=== PATIENT | male | born 1950 | race Caucasian/White ===

== ENCOUNTER 2024-04-14 01:11 | Inpatient (IN) | payer MEDICARE, OTHER ==
[~2024-04-14] VITALS: Ht 182.9 cm; Wt 72.6 kg
[2024-04-14] MEDS ORDERED: FAMO20TA80 PO (01:25)
[2024-04-14] MEDS ORDERED: ARIP20TA4 PO (01:25)
[2024-04-14] MEDS ORDERED: PANT40TA2 PO (01:25)
[2024-04-14] MEDS ORDERED: FLUT9.9S16 NS (01:25)
[2024-04-14] MEDS ORDERED: IPRA4AER PO (01:25)
[2024-04-14 01:55] LABS: BASOPHILS % (AUTO) 0.3 % (0.0-2.0); EOSINOPHILS % (AUTO) 0.4 % (0.0-6.0); HEMATOCRIT 43 % (39-51); HEMOGLOBIN 14.7 g/dL (13.5-17.5); LYMPHOCYTES # (AUTO) 1.4 K/uL (0.8-4.8); LYMPHOCYTES % (AUTO) 13.3 % (20.0-44.0); MEAN CORPUSCULAR HEMOGLOBIN 31 PG (26.0-33.0); MEAN CORPUSCULAR HGB CONC 34 g/dl (31.0-36.0); MEAN CORPUSCULAR VOLUME 91 fL (80-96); MONOCYTES % (AUTO) 9.3 % (2.0-12.0); NEUTROPHILS # (AUTO) 8.2 K/uL (1.8-8.9); NEUTROPHILS % (AUTO) 76.7 % (43.0-81.0); PLATELET COUNT (AUTO) 225 K/uL (150-450); RED BLOOD CELL COUNT(AUTO) 4.76 MIL/uL (4.5-6.0); RED CELL DISTRIBUTION WIDTH 14.3 % (11.5-15.0); WHITE BLOOD COUNT (AUTO) 10.7 K/uL (4.3-11.0)
[2024-04-14 01:59] LABS: APPEARANCE,URINE CLEAR (CLEAR); BILIRUBIN,URINE NEGATIVE (NEGATIVE); BLOOD, URINE NEGATIVE Ery/uL (NEGATIVE); COLOR,URINE YELLOW (YELLOW); KETONES,URINE TRACE mg/dL (NEGATIVE); LEUKOCYTE ESTERASE ,URINE NEGATIVE (NEGATIVE); NITRITE, URINE NEGATIVE (NEGATIVE); PROTEIN,URINE NEGATIVE (NEGATIVE); UGLUCOSE NEGATIVE (NEGATIVE); UROBILINOGEN,URINE 0.2 EU/dL (0.2)
[2024-04-14 02:07] LABS: ALANINE AMINOTRANSFERASE 54 U/L (12-78); ALBUMIN 4.1 g/dL (3.4-5.0); ALKALINE PHOSPHATASE 107 U/L (46-116); ASPARTATE AMINOTRANSFERASE 30 U/L (15-37); BILIRUBIN,DIRECT 0.1 mg/dL (0.0-0.2); BILIRUBIN,TOTAL 0.6 mg/dL (0.2-1.0); CALCIUM, SERUM 9.2 mg/dL (8.5-10.1); CARBON DIOXIDE 26 mmol/L (21-32); CHLORIDE 110 mmol/L (98-107); CREATININE 0.7 mg/dL (0.6-1.3); GLUCOSE 110 mg/dL (74-106); SODIUM SERUM 146 mmol/L (136-145); TOTAL PROTEIN, SERUM 7.8 g/dL (6.4-8.2); UREA NITROGEN, BLOOD 21 mg/dL (7-18)
[2024-04-14 02:08] LABS: SALICYLATE 2.7 mg/dL (2.8-20.0)
[2024-04-14 02:09] LABS: ACETAMINOPHEN <10 ug/ml (10-30); ALCOHOL, BLOOD < 3 mg/dL (0-10)
[2024-04-14 02:18] LABS: ADD URINE CULTURE NO; BACTERIA,URINE Rare /HPF (None Seen); WBC,URINE NONE SEEN /HPF (0-3)
[2024-04-14 02:19] LABS: MUCUS,URINE Few /LPF (None Seen); SQUAMOUS EPITHELIAL CELL,UR None Seen /HPF (None Seen)
[2024-04-14 02:22] LABS: AMPHETAMINE, URINE NEGATIVE (NEGATIVE); BARBITURATE, URINE NEGATIVE (NEGATIVE); BENZODIAZEPINE, URINE NEGATIVE (NEGATIVE); CANNABINOID, URINE NEGATIVE (NEGATIVE); COCCAINE, URINE NEGATIVE (NEGATIVE); OPIATE, URINE NEGATIVE (NEGATIVE); PHENCYCLIDINE SCREEN,URINE NEGATIVE (NEGATIVE)
[2024-04-14] MEDS ORDERED: clonazePAM 0.5 MG TABLET PO PRN ×2 (03:30)
[2024-04-14] MEDS ORDERED: MAGNESIUM HYDROXIDE 30 ML UDC PO PRN (03:30)
[2024-04-14] MEDS ORDERED: TEMAZEPAM 7.5 MG CAPSULE PO PRN ×3 (03:30→09:00)
[2024-04-14 04:16] VITALS: BP 146/88; TEMP 98; O2SAT 95
[2024-04-14] MEDS: BLOOD SUGAR DIAGNOSTIC 1 EACH STRIP IN ONE (04:23)
[2024-04-14] MEDS: FAMOTIDINE (20 MG) 20 MG TABLET PO SCH (07:57)
[2024-04-14] MEDS: PANTOPRAZOLE 40 MG TABLET.DR PO SCH (07:58)
[2024-04-14 08:00] VITALS: BP 144/90; TEMP 98; O2SAT 95
[2024-04-14] MEDS ORDERED: MAG-5 PO (08:28)
[2024-04-14] MEDS ORDERED: ACET-868 PO (08:28)
[2024-04-14] MEDS ORDERED: Medication Not On Formulary EA (Ipratropium/Albuterol Sulfate (Combivent Respimat 20-100 PO SCH (09:00)
[2024-04-14] MEDS: FLUTICASONE PROPIONATE 16 GM BOTTLE NS SCH (09:52)
[2024-04-14] MEDS: ALBUTEROL FS 2.5 MG/3 ML VIAL.NEB NEB SCH (11:54)
[2024-04-14] MEDS: IPRATROPIUM NEB FS 0.5 MG/2.5 ML AMPUL.NEB NEB SCH (11:54)
[2024-04-14 16:00] VITALS: BP 146/86; TEMP 98.9; O2SAT 95
[2024-04-14 20:00] VITALS: BP 150/86; TEMP 98.5; O2SAT 97
[2024-04-14] MEDS: ARIPIPRAZOLE 5 MG TABLET PO SCH (22:00)
[2024-04-15] MEDS: MAG HYDROX/AL HYDROX/SIMETH 30 ML UDC PO PRN (00:45)
[2024-04-15 08:00] VITALS: BP 139/80; TEMP 97.6; O2SAT 96
[2024-04-15] MEDS: ACETAMINOPHEN 325 MG TABLET PO PRN (13:11)
[2024-04-15 16:00] VITALS: BP 128/84; TEMP 97.9; O2SAT 98
[2024-04-15 20:00] VITALS: BP 111/60; TEMP 98; O2SAT 98
[2024-04-15] MEDS: HALOPERIDOL LACTATE INJ 5 MG/ML VIAL IM PRN (22:46)
[2024-04-15] MEDS: diphenhydrAMINE HCL 50 MG/ML VIAL IM PRN (22:46)
[2024-04-16 08:00] VITALS: BP 133/82; TEMP 98.1; O2SAT 98
[2024-04-16 16:00] VITALS: BP 105/41; TEMP 98.1; O2SAT 96
[2024-04-16 20:27] VITALS: BP 106/80; TEMP 98.1; O2SAT 97
[2024-04-17 21:13] VITALS: BP 105/70; TEMP 98.6; O2SAT 99
[2024-04-18 08:00] VITALS: BP 137/80; TEMP 98.7; O2SAT 98
[2024-04-18 16:00] VITALS: BP 108/78; TEMP 97.8; O2SAT 99
[2024-04-18 20:00] VITALS: BP 122/67; TEMP 98.7; O2SAT 98
[2024-04-19 08:00] VITALS: BP 125/64; TEMP 98.1; O2SAT 96
[2024-04-19] MEDS: clonazePAM 0.5 MG TABLET PO PRN (15:56)
[2024-04-19 16:00] VITALS: BP 130/87; TEMP 98.1; O2SAT 98
[2024-04-19 20:00] VITALS: BP 139/76; TEMP 98.7; O2SAT 97
[2024-04-20] MEDS ORDERED: diphenhydrAMINE HCL ELIX 25 MG/10 ML UDC PO PRN (07:30)
[2024-04-20 08:00] VITALS: BP 125/69; TEMP 97.9; O2SAT 97
[2024-04-20 16:02] VITALS: BP 116/60; TEMP 97.7; O2SAT 97
[2024-04-20 20:00] VITALS: BP 105/57; TEMP 97.7; O2SAT 98
[2024-04-21 08:00] VITALS: BP 139/80; TEMP 98; O2SAT 95
[2024-04-21 16:00] VITALS: BP 134/78; TEMP 98.6; O2SAT 95
[2024-04-21 20:00] VITALS: BP 147/75; TEMP 98.4; O2SAT 96
[2024-04-22 08:00] VITALS: BP 127/76; TEMP 97.7; O2SAT 96
[2024-04-22 16:00] VITALS: BP 116/69; TEMP 98; O2SAT 98
[2024-04-22 20:00] VITALS: BP 99/48; TEMP 98.3; O2SAT 97
[2024-04-23 08:28] VITALS: BP 122/74; TEMP 97.3; O2SAT 98
[2024-04-23 16:00] VITALS: BP_SYST 116; BP_SYST 122; BP_DIAS 69; BP_DIAS 82; TEMP 97.9; TEMP 98.3; O2SAT 97
[2024-04-23 20:00] VITALS: BP 128/72; TEMP 97.4; O2SAT 97
[2024-04-24 08:00] VITALS: BP 135/99; TEMP 98; O2SAT 96
[2024-04-24 16:07] VITALS: BP 118/73; TEMP 98; O2SAT 97
[2024-04-24 20:00] VITALS: BP 131/83; TEMP 98; O2SAT 98
[2024-04-25 08:00] VITALS: BP 127/73; TEMP 98.6; O2SAT 96
[2024-04-25 15:50] VITALS: BP 135/78; TEMP 98.1; O2SAT 95
[2024-04-25 20:58] VITALS: BP 107/66; TEMP 98.1; O2SAT 95
[2024-04-26 08:41] VITALS: BP 132/89; TEMP 98; O2SAT 98
[2024-04-26 15:59] VITALS: BP 131/76; TEMP 97.9; O2SAT 100
[2024-04-26 21:54] VITALS: BP 139/74; TEMP 98.1; O2SAT 96
[2024-04-27 08:00] VITALS: BP 106/55; TEMP 98.2; O2SAT 99
[2024-04-27 16:00] VITALS: BP 113/70; TEMP 98.8; O2SAT 95
[2024-04-27 20:00] VITALS: BP 123/64; TEMP 98.6; O2SAT 97
[2024-04-28 08:00] VITALS: BP 122/66; TEMP 98; O2SAT 93
== END 2024-04-28 14:20 | DRG 885 ==
LOC: ER 01:20 → GPS 02:55
PROVIDERS: ADMIT Nurse Practitioner Psychiatric/Mental Health; ATTEND Internal Medicine
DX: F20.9 Schizophrenia, unspecified (principal); E87.0 Hyperosmolality and hypernatremia; F32.A Depression, unspecified; F29 Unspecified psychosis not due to a substance or known physiological condition; N40.0 Benign prostatic hyperplasia without lower urinary tract symptoms; K21.9 Gastro-esophageal reflux disease without esophagitis; Z79.51 Long term (current) use of inhaled steroids; Z79.899 Other long term (current) drug therapy; R45.1 Restlessness and agitation; R41.9 Unspecified symptoms and signs involving cognitive functions and awareness; L84 Corns and callosities; E86.0 Dehydration; R79.89 Other specified abnormal findings of blood chemistry; B35.1 Tinea unguium
CPT/HCPCS: 36415; 80048-TC; 80076-TC; 81001; 82962-TC; 85025-TC; 87081-TC; 94799-TC; G0480; J1200; J1630